=== PATIENT | male | born 1955 | race Caucasian/White ===

== ENCOUNTER 2016-10-30 02:49 | Emergency (ER) | payer OTHER, MEDICARE ==
[~2016-10-30] VITALS: Ht 177.8 cm; Wt 95.3 kg
[~2016-10-30 02:49] MED LIST: ACETAMINOPHEN325 M2 PO; ALPRAZOLAM0.5 MG PO; ASPIRIN ADULT L81 M1 PO; AUGMENTIN 875 M1 TAB PO; COLCHICINE0.6 MG PO; COLCRYS0.6 MG PO; CYMBALTA60 MG PO; DULCOLAX10 MG R; EPA/GLA1 SGL PO; Ecotrin325 MG PO; FERROUS SULFATE27 MG PO; Fleet Adult Enem1 EA R; GLYBURIDE2.5 MG PO; HUMALOG100 U/ML SC; HYDROCODONE BIT1 T11 PO; INDOCIN25 MG PO; INDOCIN50 MG PO; INDOMETHACIN25 MG PO; INSULIN SC; ISOSORBIDE MONO30 MG PO; ISOSORBIDE30 MG PO; MEDROL DOSEPAK4 MG PO; MELATONIN1 M1 PO; MELATONIN3 M1 PO; METFORMIN HYDR500 M1 PO; METFORMIN500 MG PO; METOPROLOL SUCC ER 2; MOM30 ML PO; MOTRIN800 MG PO; NORCO 325 MG-101 TAB PO; NORCO 325 MG-51 TAB PO; ORASONE20 MG PO; OXYCODONE AND A1 CA1 PO; PAXIL40 MG PO; PERCOCET 325 MG1 TA2 PO; PERPHENAZINE4 MG PO; PRAVACHOL10 MG PO; PRAVACHOL40 MG PO; PRAVASTATIN SOD80 MG PO; PREDNISONE20 MG PO; Percocet 325 MG1 TAB PO; STOOL SOFTENER100 MG PO; TOPROL XL25 MG; TRAMADOL HCL50 MG PO; TRILAFON4 MG PO; TYLENOL325 M1 PO; VICODIN 500 MG-1 TAB PO; VITAMIN D3 PO; VITAMIN D5000 I2 PO; ZETIA10 MG PO; ZYLOPRIM100 MG PO; [UNRECOGNIZED DRUG - OTHER] PO
[2016-10-30 02:56] VITALS: BP 112/62
[2016-10-30] MEDS ORDERED: KEFLEX500 M1 PO (03:52)
[2016-10-30] MEDS ORDERED: Motrin,Rufen400 MG PO (03:56)
== END 2016-10-30 04:26 | disposition home or self-care (01) ==
LOC: ED 02:49
DX: S61.216A Laceration without foreign body of right little finger without damage to nail, initial encounter (principal); L08.9 Local infection of the skin and subcutaneous tissue, unspecified; M10.9 Gout, unspecified; M19.90 Unspecified osteoarthritis, unspecified site; Z79.82 Long term (current) use of aspirin; Z79.899 Other long term (current) drug therapy; W23.0XXA Caught, crushed, jammed, or pinched between moving objects, initial encounter; Y93.89 Activity, other specified; Y92.9 Unspecified place or not applicable; Y99.9 Unspecified external cause status

== ENCOUNTER 2016-11-03 23:53 | Emergency (ER) | payer OTHER, MEDICARE ==
[~2016-11-03] VITALS: Ht 172.7 cm; Wt 113.4 kg
[~2016-11-03 23:53] MED LIST changes: +KEFLEX500 M1 PO; +Motrin,Rufen400 MG PO
[2016-11-04 00:02] VITALS: BP 101/62
[2016-11-04] MEDS ORDERED: ANAPROX DS550 MG PO (00:59)
== END 2016-11-04 01:08 | disposition home or self-care (01) ==
LOC: ED 23:53
DX: T14.8 Other injury of unspecified body region (principal); M54.5 Low back pain; M79.601 Pain in right arm; M10.9 Gout, unspecified; F17.200 Nicotine dependence, unspecified, uncomplicated; Z79.82 Long term (current) use of aspirin; Z79.899 Other long term (current) drug therapy; W10.9XXA Fall (on) (from) unspecified stairs and steps, initial encounter; Y93.89 Activity, other specified; Y92.89 Other specified places as the place of occurrence of the external cause; Y99.8 Other external cause status